=== PATIENT | female | born 2000 | race Asian ===

== ENCOUNTER 2019-09-27 21:43 | Emergency (ER) | payer OTHER ==
[2019-09-28] MEDS ORDERED: Famotidine TAB* 20 MG PO ONE (02:45)
[2019-09-28] MEDS ORDERED: diPHENhydraMINE PO* 25 MG PO ONE (02:45)
[2019-09-28] MEDS ORDERED: Benzonatate CAP* 100 MG PO ONE (02:48)
--- NOTE | 2019-09-28 02:54 | ED ---
Influenza-Like Illness - HPI Summary HPI Summary: Patient complains of productive cough with clear phlegm times couple days, new onset rash on face today. Patient took DayQuil 1 hour prior to onset of rash. Has taken DayQuil before, but did not know that were different kinds of DayQuil. Possible history of allergy to paracetamol/acetaminophen. Patient came back from [facility] on the . Was taking antibiotics for cough on [facility], cough improved and then got worse after return to [facility]. Denies fever, sore throat, ear pain, neck stiffness, CP, SOB, N/3/D, abdominal pain, change in urine, change in BM. Medical history is none. Possible allergy to penicillin and paracetamol/acetaminophen. Denies prior History of urticaria. Denies recent visit to [place] or known exposure to coronavirus. - History of Current Complaint Chief Complaint: EDAllergicReaction Time Seen by Provider: 09/28/19 02:38 Hx Obtained From: Patient Onset/Duration: Sudden Onset, Lasting Hours Severity: Moderate Associated Signs & Symptoms: Cough - Allergy/Home Medications Allergies/Adverse Reactions: Allergies Allergy/AdvReac Type Severity Reaction Status Date / Time Penicillins Allergy Hives Verified 09/27/19 22:31 Home Medications: Home Medications D-Methorphan/PE/Acetaminophen [Vicks Dayquil Liquicaps] 1 cap PO DAILY PRN 09/28 [History Confirmed 09/28/19] PMH/Surg Hx/FS Hx/Imm Hx Endocrine/Hematology History: Denies: Hx Anticoagulant Therapy Cardiovascular History: Denies: Hx Pacemaker/ICD History: Denies: Hx Dialysis Sensory History: Denies: Hx Eye Prosthesis Opthamlomology History: Denies: Hx Legally Blind EENT History: Denies: Hx Deafness Neurological History: Denies: Hx Dementia Infectious Disease History: No Infectious Disease History: Reports: Traveled Outside the [place] in Last 30 Days - Family History Known Family History: Positive: Non-Contributory - Social History Alcohol Use: Occasionally Hx Substance Use: No Hx Tobacco Use: No Review of Systems Constitutional: Negative Eyes: Negative ENT: Negative Cardiovascular: Negative Positive: Cough Gastrointestinal: Negative Genitourinary: Negative Musculoskeletal: Negative Positive: Rash Neurological: Negative Psychological: Normal All Other Systems Reviewed And Are Negative: Yes Physical Exam - Summary Physical Exam Summary: Side erythematous lacy rash to bilateral face. ENT exam unremarkable. Lung sounds clear to auscultation bilaterally. Triage Information Reviewed: Yes Vital Signs On Initial Exam: Initial Vitals Temp Pulse Resp BP Pulse Ox 98.0 F 97 16 121/75 100 09/27/19 22:28 09/27/19 22:28 09/27/19 22:28 09/27/19 22:28 09/27/19 22:28 Vital Signs Reviewed: Yes Appearance: Positive: Well-Appearing Skin: Positive: Warm Head/Face: Positive: Normal Head/Face Inspection Eyes: Positive: Normal ENT: Positive: Normal ENT inspection Neck: Positive: Supple Respiratory/Lung Sounds: Positive: Clear to Auscultation Cardiovascular: Positive: Normal Abdomen Description: Positive: Nontender Musculoskeletal: Positive: Normal Neurological: Positive: Normal Psychiatric: Positive: Normal AVPU Assessment: Alert - [place] Coma Scale Best Eye Response: 4 - Spontaneous Best Motor Response: 6 - Obeys Commands Best Verbal Response: 5 - Oriented Coma Scale Total: 15 Procedures - Sedation Patient Received Moderate/Deep Sedation with Procedure: No Diagnostics - Vital Signs Vital Signs Temp Pulse Resp BP Pulse Ox 09/28/19 00:24 98.7 F 92 16 126/78 94 09/27/19 22:28 98.0 F 97 16 121/75 100 - Laboratory Lab Statement: Any lab studies that have been ordered have been reviewed, and results considered in the medical decision making process. Re-Evaluation - Re-Evaluation First Eval Re-Evaluation Time: 04:00 Comment: I have discussed results with the patient. Discussed symptoms that warrant immediate return to ED. Flu Symptom Course/Dx - Course Course Of Treatment: Patient complains of productive cough with clear phlegm times couple days, new onset rash on face today. Patient took DayQuil 1 hour prior to onset of rash. Has taken DayQuil before, but did not know that were different kinds of DayQuil. Possible history of allergy to paracetamol/ acetaminophen. Patient came back from [facility] on the . Was taking antibiotics for cough on [facility], cough improved and then got worse after return to [facility]. Denies fever, sore throat, ear pain, neck stiffness, CP, SOB, N/3/D, abdominal pain, change in urine, change in BM. Medical history is none. Possible allergy to penicillin and paracetamol/acetaminophen. Denies prior History of urticaria. Denies recent visit to [place] or known exposure to coronavirus. Vital signs within normal limits. Flu negative. Strep negative. Rash resolved with Benadryl. - Diagnoses Provider Diagnoses: Urticaria, Viral syndrome Discharge ED - Sign-Out/Discharge Documenting (check all that apply): Sign-Out Patient Signing out patient TO: Joyce Lira - Discharge Plan Condition: Stable Disposition: HOME Prescriptions: Benzonatate CAP* [Tessalon 100 MG CAP*] 200 mg PO TID 6 Days #40 cap Patient Education Materials: Urticaria (ED), Viral Syndrome (ED) Referrals: [facility] [Outside] - 3 Days Additional Instructions: Please take medication as prescribed. Follow up with your primary care provider in 2-3 days. Return to the emergency department for any new or worsening symptoms. - Billing Disposition and Condition Condition: STABLE Disposition: Home
[2019-09-28 03:46] LABS: Rapid Strep Molecular Negative (Negative)
[2019-09-28 03:52] LABS: Influenza A Molecular NEGATIVE (Negative); Influenza B Molecular NEGATIVE (Negative)
--- NOTE | 2019-09-28 04:05 | ED ---
Progress - Progress Note Progress Note: The patient is a sign-out from SHI Richter, to Dr. Joyce Lira MD, at change of shift at 0230 on 09/28/19, pending flu and strep tests and disposition. Influenza A and B are negative. Rapid strep is negative. Patient is safe for discharge. Re-Evaluation - Re-Evaluation First Eval Re-Evaluation Time: 04:00 Comment: I have discussed results with the patient. Discussed symptoms that warrant immediate return to ED. Course/Dx - Diagnoses Provider Diagnoses: Urticaria, Viral syndrome Discharge ED - Sign-Out/Discharge Documenting (check all that apply): Patient Departure - Patient will be discharged home. - Discharge Plan Condition: Stable Disposition: HOME Prescriptions: Benzonatate CAP* [Tessalon 100 MG CAP*] 200 mg PO TID 6 Days #40 cap Patient Education Materials: Urticaria (ED), Viral Syndrome (ED) Referrals: [facility] [Outside] - 3 Days Additional Instructions: Please take medication as prescribed. Follow up with your primary care provider in 2-3 days. Return to the emergency department for any new or worsening symptoms. - Attestation Statements Document Initiated by Scribe: Yes Documenting Scribe: Nicole Aburto Provider For Whom Scribe is Documenting (Include Credential): Dr. Joyce Lira MD Scribe Attestation: Nicole Cancino, scribed for Dr. Joyce Lira MD on 09/28/19 at 0409. Status of Scribe Document: Ready Procedures - Sedation Patient Received Moderate/Deep Sedation with Procedure: No
== END 2019-09-28 04:13 | disposition home or self-care (01) ==
LOC: ED 21:43
DX: L50.9 Urticaria, unspecified (principal); B34.9 Viral infection, unspecified; Z88.0 Allergy status to penicillin
CPT/HCPCS: 87651; 99283; A9270-GY; J7512